=== PATIENT | female | born 1950 | race Two or more races ===

== ENCOUNTER → 2016-09-08 | Outpatient (CLI) | payer MEDICARE, OTHER | LOC: WI 06:52 | PROVIDERS: ATTEND Internal Medicine | DX: Z12.31 Encounter for screening mammogram for malignant neoplasm of breast (principal) | CPT/HCPCS: 77067; G0202 ==

== ENCOUNTER → 2018-04-12 | Outpatient (CLI) | payer MEDICARE, OTHER ==
--- NOTE | 2018-04-12 09:36 | RADIOLOGY REPORT (SQ) ---
EXAM DESCRIPTION: U/S ABDOMEN LIMITED W/O DOP COMPLETED DATE/TIME: 04/12/2018 9:12 am REASON FOR STUDY: EPIGASTRIC PAIN (R10.13), ABD TENDERNESS-EPIGASTRIC (R10.816), HEPATOMEGAL, R10.13 EPIGASTRIC PAIN R10.816 EPIGASTRIC ABDOMINAL TENDERNESS R16.0 HEPATOMEGALY, NOT ELSEWHERE CLASSIF IED COMPARISON: CT ABDOMEN PELVIS DATED 02/25/2013 TECHNIQUE: Dynamic and static grayscale images acquired of the abdomen and recorded on PACS. Additio nal selected color Doppler and spectral images recorded. LIMITATIONS: None. FINDINGS: PANCREAS: The body and head of the pancreas are unremarkable. The tail is obscured by ove rlying bowel gas. LIVER: Echotexture is coarse with increased echogenicity consistent with fatty infiltration. The bruna er measures 18.4 cm in cranial caudal dimensions. LIVER VASCULATURE: Normal directional flow of the main portal vein and hepatic veins. GALLBLADDER: Surgically absent. ULTRASOUND-DETECTED DEAL'S SIGN: Not applicable. INTRAHEPATIC DUCTS AND COMMON DUCT: CBD and intrahepatic ducts normal caliber. No filling defects. AORTA: No aneurysm. RIGHT KIDNEY: Normal size. Normal echogenicity. There is a 1.6 x 1.5 x 1.2 cm cyst off the infer ior pole the right kidney. No hydronephrosis. No calcifications. PERITONEAL AND RIGHT PLEURAL SPACE: No ascites or effusions. OTHER: No other significant finding. IMPRESSION: 1. Fatty infiltration of the liver. 2. Prior cholecystectomy. TECHNICAL DOCUMENTATION: JOB ID: [id number] [employer]- All Rights Reserved Reading location - IP/workstation name: [email or web address]
== END ==
LOC: RAD 07:49
PROVIDERS: ATTEND Internal Medicine Gastroenterology
DX: N28.1 Cyst of kidney, acquired (principal); R10.13 Epigastric pain; R16.0 Hepatomegaly, not elsewhere classified
CPT/HCPCS: 76705

== ENCOUNTER → 2018-06-28 | Outpatient (CLI) | payer MEDICARE, OTHER ==
--- NOTE | 2018-06-28 12:41 | WOMENS IMAGING REPORT ---
EXAM DESCRIPTION: 3D SCREENING MAMMO BILAT COMPLETED DATE/TIME: 06/28/2018 12:02 pm REASON FOR STUDY: ROUTINE BILATERAL SCREENING,Z12.31 Z12.31 ENCNTR SCREEN MAMMOGRAM FOR MALIGNANT N EOPLASM OF OLIVERIO COMPARISON: 2009, 2014, 2016 TECHNIQUE: Standard craniocaudal and mediolateral oblique views of each breast recorded using digita l acquisition and breast tomosynthesis. LIMITATIONS: None. FINDINGS: No masses, calcifications or architectural distortion. No areas of suspicion. Read with the assistance of CAD. .[facility] - R2 Cenova Version 1.3 .[facility] - R2 Cenova Version 1.3 .[facility] - R2 Cenova Version 2.4 .[facility] - R2 Cenova Version 2.4 .[facility] - R2 Screen Printer Helper Version 9.2 IMPRESSION: NORMAL MAMMOGRAM. BIRADS 1. BREAST DENSITY: b. There are scattered areas of fibroglandular density. BIRAD: 1 NEGATIVE RECOMMENDATION: ROUTINE SCREENING COMMENT: The patient has been notified of the results by letter per MQSA requirements. Additional no tification policies are in place for contacting patient with suspicious or incomplete findings. Quality ID #[id number]: The [employer] recommends an annual screening mammogram for women aged 40 years or over. This facility utilizes a reminder system to ensure that all patients receive reminder letters, and/or direct phone calls for appointments. This includes reminders for routine scr eening mammograms, diagnostic mammograms, or other Breast Imaging Interventions when appropriate. Th is patient will be placed in the appropriate reminder system. The [employer] (ACR) has developed recommendations for screening MRI of the breast s in certain patient populations, to be used in conjunction with mammography. Breast MRI surveillanc e may be appropriate for women with more than 20% lifetime risk of developing breast cancer as deter mined by genetic testing, significant family history of the disease, or history of mantle radiation f or Hodgkins Disease. ACR Practice Guidelines 2008. DBT Technology DBT is a type of tomographic mammography. With conventional mammography, overlapping breast tissue ma y make lesions difficult to detect, even with good compression. DBT uses an x-ray tube that rotates a round the breast, taking images at different angles. These images are then combined to create thin sl ices of the breast that the radiologist can view as a 3D reconstruction. The [employer] unit can perform full-field digital mammograms (2D imaging); or DBT (3D imaging); or both, in a combination mode that quickly performs both the mammogram and the tomosynthesis scan while the breast is still compressed. PQRS 6045F: Fluoroscopic imaging is not utilized for breast tomosynthesis. TECHNICAL DOCUMENTATION: FINDING NUMBER: (1) ASSESSMENT: (1) JOB ID: [id number] [employer]- All Rights Reserved Reading location - IP/workstation name: [email or web address]
== END ==
LOC: WI 11:06
PROVIDERS: ATTEND Internal Medicine
DX: Z12.31 Encounter for screening mammogram for malignant neoplasm of breast (principal)
CPT/HCPCS: 77063; 77067

== ENCOUNTER 2019-08-01 13:31 | Emergency (ER) | payer MEDICARE, OTHER ==
[2019-08-01] MEDS ORDERED: NORMAL SALINE 500 ML IV ONE (13:57)
--- NOTE | 2019-08-01 14:07 | ER Document Report ---
ED Medical Screen (RME) - General Chief Complaint: Dizziness Stated Complaint: DIZZY/VISION PROBLEMS Time Seen by Provider: 08/01/19 13:55 Primary Care Provider: CARLITOS FRIEND MD [Primary Care Provider] - Follow up as needed Notes: HPI: 69-year-old female presenting to the emergency department complaining of sudden onset of dizziness and lightheadedness that occurred after she ate lunch today. Patient states that she has a history of hypertension and diabetes she did take her blood pressure medications today. Patient felt fine going to lunch, after lunch she got up and became dizzy and lightheaded. Patient states she did not have chest pain or shortness of breath at that time. Patient states the dizziness seemed to stay and as she was walking to the car she felt her vision blur, this lasted for 30 minutes and then went away. Patient states she now has a slight posterior headache and feels like her heart is pounding. Patient states that she does tend to run a lower blood pressure at times. She denies unilateral weakness. Patient is on Xarelto I have greeted and performed a rapid initial assessment of this patient. A comprehensive ED assessment and evaluation of the patient, analysis of test results and completion of the medical decision making process will be conducted by additional ED providers PHYSICAL EXAMINATION: GENERAL: Well-appearing, well-nourished and in mild acute distress. HEAD: Atraumatic, normocephalic. EYES: sclera anicteric, conjunctiva are normal. ENT: Moist mucous membranes. NECK: Normal range of motion LUNGS: Normal work of breathing, clear to auscultation HEART: 2+ radial pulses bilaterally, occasionally irregular ABD: limited by positioning for exam in triage. EXTREMITIES: no pitting or edema. No cyanosis. NEUROLOGICAL: No focal neurological deficits. Moves all extremities spontaneously and on command. No facial droop. Speech is clear, no slurring. Strength equal 5/5 bilateral upper and lower extremities PSYCH: Normal mood, normal affect. SKIN: Warm, Dry, normal turgor, no rashes or lesions noted. TRAVEL OUTSIDE OF THE [place] IN LAST 30 DAYS: No - Related Data Allergies/Adverse Reactions: acetaminophen [From Vicodin] Allergy (Verified 08/01/19 13:49) adhesive [Adhesive] Allergy (Verified 02/24/13 21:25) Calcium Channel Blocking Agent Dilt [Calcium Channel Blocking Agents-Steve] Allergy (Verified 02/24/13 21:25) cephalexin monohydrate [From Keflex] Allergy (Verified 02/24/13 21:25) Cephalosporins Allergy (Verified 08/01/19 13:49) hydrocodone [From Vicodin] Allergy (Verified 08/01/19 13:49) oxycodone [Oxycodone] Allergy (Verified 02/24/13 21:25) Past Medical History - Social History Frequency of alcohol use: None Drug Abuse: None - Past Medical History Cardiac Medical History: Reports: Hx Hypertension Pulmonary Medical History: Reports: Hx Bronchitis - years ago, Hx Sleep Apnea Renal/ Medical History: Reports: Hx Kidney Stones - years ago, Hx Peritoneal Dialysis GI Medical History: Reports: Hx Gastroesophageal Reflux Disease, Hx Irritable Bowel Past Surgical History: Reports: Hx Cholecystectomy, Hx Hysterectomy - oopherectomy, Hx Orthopedic Surgery - bilateral wrist. Denies: Hx Pacemaker - Immunizations Hx Diphtheria, Pertussis, Tetanus Vaccination: No Physical Exam - Vital signs Vitals: Temp Pulse Resp BP Pulse Ox 98.3 F 69 20 96/60 L 93 08/01/19 13:43 08/01/19 13:43 08/01/19 13:43 08/01/19 13:43 08/01/19 13:43 Course - Vital Signs Vital signs: Temp Pulse Resp BP Pulse Ox 98.3 F 69 20 96/60 L 93 08/01/19 13:43 08/01/19 13:43 08/01/19 13:43 08/01/19 13:43 08/01/19 13:43 Doctor's Discharge - Discharge Referrals: CARLITOS FRIEND MD [Primary Care Provider] - Follow up as needed
--- NOTE | 2019-08-01 14:47 | RADIOLOGY REPORT (SQ) ---
EXAM DESCRIPTION: CHEST 2 VIEWS COMPLETED DATE/TIME: 08/01/2019 2:37 pm REASON FOR STUDY: dizziness COMPARISON: 02/25/2013 EXAM PARAMETERS: NUMBER OF VIEWS: two views TECHNIQUE: Digital Frontal and Lateral radiographic views of the chest acquired. RADIATION DOSE: NA LIMITATIONS: none FINDINGS: LUNGS AND PLEURA: No opacities, masses or pneumothorax. No pleural effusion. MEDIASTINUM AND HILAR STRUCTURES: No masses or contour abnormalities. HEART AND VASCULAR STRUCTURES: Normal heart size. Vascular calcifications. BONES: No acute findings. HARDWARE: Loop recorder overlies left chest. OTHER: No other significant finding. IMPRESSION: No evidence of acute cardiopulmonary process TECHNICAL DOCUMENTATION: JOB ID: [id number] 2010 [employer]- All Rights Reserved Reading location - IP/workstation name: [email or web address]
[2019-08-01 15:17] LABS: ABSOLUTE EOSINOPHILS # (AUTO) 0.2 10^3/uL (0.0-0.6); ABSOLUTE LYMPHOCYTES (AUTO) 1.6 10^3/uL (0.5-4.7); ABSOLUTE MONOCYTES (AUTO) 0.7 10^3/uL (0.1-1.4); ABSOLUTE NEUT (AUTO) 5.2 10^3/uL (1.7-8.2); BASOPHILS % (AUTO) 0.6 % (0-2); EOSINOPHILS % (AUTO) 2.1 % (0-6); HEMATOCRIT 45.1 % (36.0-47.0); LYMPHOCYTES % (AUTO) 20.7 % (13-45); MEAN CORPUSCULAR HEMOGLOBIN 31.2 pg (27.0-33.4); MEAN CORPUSCULAR HGB CONC 35.3 g/dL (32.0-36.0); MEAN CORPUSCULAR VOLUME 88 fl (80-97); MONOCYTES % (AUTO) 9.2 % (3-13); PLATELET COUNT 242 10^3/uL (150-450); RED BLOOD COUNT 5.11 10^6/uL (3.72-5.28); RED CELL DISTRIBUTION WIDTH 14.8 % (11.5-14.0); SEGMENTED NEUTROPHILS % (AUTO) 67.4 % (42-78); TOTAL CELLS COUNTED % (AUTO) 100 %; WHITE BLOOD COUNT 7.7 10^3/uL (4.0-10.5)
[2019-08-01 15:32] LABS: INTERNATIONAL RATION (INR) 2.07; PROTHROMBIN TIME 23.7 SEC (11.4-15.4)
[2019-08-01 15:38] LABS: ALKALINE PHOSPHATASE 45 U/L (38-126); ANION GAP 8 (5-19); ASPARTATE AMINO TRANSFERASE 24 U/L (14-36); BILIRUBIN,TOTAL 0.4 mg/dL (0.2-1.3); BLOOD UREA NITROGEN 21 mg/dL (7-20); CALCIUM 9.8 mg/dL (8.4-10.2); CARBON DIOXIDE 29 mmol/L (22-30); CHLORIDE 103 mmol/L (98-107); GLUCOSE 115 mg/dL (75-110); POTASSIUM 3.3 mmol/L (3.6-5.0); TOTAL PROTEIN 6.6 g/dL (6.3-8.2)
--- NOTE | 2019-08-01 16:10 | RADIOLOGY REPORT (SQ) ---
EXAM DESCRIPTION: CT HEAD WITHOUT COMPLETED DATE/TIME: 08/01/2019 3:59 pm REASON FOR STUDY: sudden dizziness COMPARISON: None. TECHNIQUE: Axial images acquired through the brain without intravenous contrast. Images reviewed wi th bone, brain and subdural windows. Additional sagittal and coronal reconstructions were generated. Images stored on PACS. All CT scanners at this facility use dose modulation, iterative reconstruction, and/or weight based d osing when appropriate to reduce radiation dose to as low as reasonably achievable (ALARA). [facility]: Dose Right [facility]: CareDose [facility]: Dose Right [facility]: Teradose 4D [facility]: TapHome RADIATION DOSE: CT Rad equipment meets quality standard of care and radiation dose reduction techniq ues were employed. CTDIvol: 53.2 mGy. DLP: 991 mGy-cm. mGy. LIMITATIONS: None. FINDINGS: VENTRICLES: Normal size and contour. CEREBRUM: No masses. No hemorrhage. No midline shift. No evidence for acute infarction. Normal gra y/white matter differentiation. No areas of low density in the white matter. Calcified lesion overly ing the left occipital lobe most likely represents a small calcified meningioma. CEREBELLUM: No masses. No hemorrhage. No alteration of density. No evidence for acute infarction. EXTRAAXIAL SPACES: No fluid collections. No masses. ORBITS AND GLOBE: No intra- or extraconal masses. Normal contour of globe without masses. CALVARIUM: No fracture. PARANASAL SINUSES: No fluid or mucosal thickening. SOFT TISSUES: No mass or hematoma. OTHER: No other significant finding. IMPRESSION: 1. No acute intracranial event. 2. Probable small calcified meningioma along the midline posteriorly on the left. EVIDENCE OF ACUTE STROKE: NO. COMMENT: Quality ID # [id number]: Final reports with documentation of one or more dose reduction techniques (e.g., Automated exposure control, adjustment of the mA and/or kV according to patient size, use of iterative reconstruction technique) TECHNICAL DOCUMENTATION: JOB ID: [id number] 2011 [employer]- All Rights Reserved Reading location - IP/workstation name: [email or web address]
--- NOTE | 2019-08-01 18:51 | ER Document Report ---
ED General - General Chief Complaint: Dizziness Stated Complaint: DIZZY/VISION PROBLEMS Time Seen by Provider: 08/01/19 13:55 Primary Care Provider: CARLITOS FRIEND MD [Primary Care Provider] - Follow up as needed Mode of Arrival: Ambulatory Information source: Patient, Relative Notes: Patient is a 69-year-old female presenting to the emergency department chief complaint of dizziness and blurred vision. Patient states it started around 12:00 today after eating lunch and getting up and walking to a vehicle. Patient states that the most it lasted about 10 minutes. Patient states that during that timeframe she was short of breath was having palpitations as well as sweaty. At the time of presentation to the emergency department patient states that symptoms have just about completely resolved. Patient states she is diabetic and has a history of atrial fibrillation. Patient denies travel history trauma history sick contacts no bad food exposure. No one else at home is similarly ill. TRAVEL OUTSIDE OF THE [place] IN LAST 30 DAYS: No - HPI Onset: This morning Onset/Duration: Sudden, Gone Quality of pain: No pain Severity: None Pain Level: 0 Associated symptoms: Nausea, Shortness of breath, Weakness Exacerbated by: Denies Relieved by: Denies Similar symptoms previously: Yes Recently seen / treated by doctor: No - Related Data Allergies/Adverse Reactions: acetaminophen [From Vicodin] Allergy (Verified 08/01/19 13:49) adhesive [Adhesive] Allergy (Verified 02/24/13 21:25) Calcium Channel Blocking Agent Dilt [Calcium Channel Blocking Agents-Steve] Allergy (Verified 02/24/13 21:25) cephalexin monohydrate [From Keflex] Allergy (Verified 02/24/13 21:25) Cephalosporins Allergy (Verified 08/01/19 13:49) hydrocodone [From Vicodin] Allergy (Verified 08/01/19 13:49) oxycodone [Oxycodone] Allergy (Verified 02/24/13 21:25) Past Medical History - General Information source: Patient, Relative, [facility] Records - Social History Smoking Status: Never Smoker Frequency of alcohol use: None Drug Abuse: None Lives with: Spouse/Significant other Family History: Reviewed & Not Pertinent Patient has suicidal ideation: No Patient has homicidal ideation: No - Past Medical History Cardiac Medical History: Reports: Hx Atrial Fibrillation, Hx Hypertension Pulmonary Medical History: Reports: Hx Bronchitis - years ago, Hx Sleep Apnea Endocrine Medical History: Reports: Hx Diabetes Mellitus Type 2 Renal/ Medical History: Reports: Hx Kidney Stones - years ago, Hx Peritoneal Dialysis GI Medical History: Reports: Hx Gastroesophageal Reflux Disease, Hx Irritable Bowel Past Surgical History: Reports: Hx Cholecystectomy, Hx Hysterectomy - oopherectomy, Hx Orthopedic Surgery - bilateral wrist. Denies: Hx Pacemaker - Immunizations Hx Diphtheria, Pertussis, Tetanus Vaccination: No Review of Systems - Review of Systems Notes: REVIEW OF SYSTEMS: CONSTITUTIONAL : Denies fever, chills, or sweats. Denies recent illness. EENT: Per HPI CARDIOVASCULAR: Denies chest pain. RESPIRATORY: Denies cough, cold, or chest congestion. Denies shortness of breath, difficulty breathing, or wheezing. GASTROINTESTINAL: Denies abdominal pain. Denies nausea, vomiting, or diarrhea. Denies constipation. GENITOURINARY: Denies difficulty urinating, painful urination, burning, frequency, or blood in urine. MUSCULOSKELETAL: Denies neck or back pain or joint pain or swelling. SKIN: Denies rash or skin lesions. HEMATOLOGIC : Denies easy bruising or bleeding. NEUROLOGICAL: Per HPI PSYCHIATRIC: Denies suicidal or homicidal ideations 10 Systems are negative unless otherwise specified above Physical Exam - Vital signs Vitals: Temp Pulse Resp BP Pulse Ox 98.3 F 69 20 96/60 L 93 08/01/19 13:43 08/01/19 13:43 08/01/19 13:43 08/01/19 13:43 08/01/19 13:43 - Notes Notes: PHYSICAL EXAMINATION: GENERAL: Well-appearing, well-nourished and in no acute distress. HEAD: Atraumatic, normocephalic. EYES: Pupils equal round and reactive to light, extraocular movements intact, sclera anicteric, conjunctiva are normal. ENT: nares patent, oropharynx clear without exudates. Moist mucous membranes. NECK: Normal range of motion, supple without lymphadenopathy, no appreciable JVD LUNGS: Lungs clear to auscultation bilaterally and equal. No wheezes rales or rhonchi. HEART: Regular rate and rhythm without murmurs ABDOMEN: Soft, nontender, normal bowel sounds. No guarding, no rebound. No masses appreciated. EXTREMITIES: Active full range of motion, no pitting or edema. No cyanosis. 2+ pulses x4 NEUROLOGICAL: At time of evaluation the patient is alert and oriented x3, Glascow coma scale of 15, cranial nerves II through XII are grossly intact, sensations intact, motor is intact, there are no signs of nystagmus, there is no pronator drift, there is no facial asymmetry, tongue protrusion is midline, reflexes are equal and bilateral, patient ambulates without ataxia, patient answers all questions appropriately follows commands appropriately. SKIN: Warm, Dry, and intact. Normal turgor, no rashes or lesions noted. Course - Vital Signs Vital signs: Temp Pulse Resp BP Pulse Ox 98.4 F 65 18 107/64 96 08/01/19 19:08 08/01/19 15:22 08/01/19 19:00 08/01/19 15:25 08/01/19 19:00 - Laboratory Result Diagrams: 08/01/19 15:00 08/01/19 15:00 Laboratory results interpreted by me: 08/01/19 08/01/19 08/01/19 15:00 15:00 15:00 Hgb 16.0 H RDW 14.8 H PT 23.7 H Potassium 3.3 L BUN 21 H Glucose 115 H Urine Glucose (UA) Urine Nitrite 08/01/19 18:15 Hgb RDW PT Potassium BUN Glucose Urine Glucose (UA) >=500 H Urine Nitrite POSITIVE H - Diagnostic Test Radiology reviewed: Reports reviewed - EKG Interpretation by Me EKG shows normal: Sinus rhythm Rate: Normal Rhythm: NSR When compared to previous EKG there are: No significant change Discharge - Discharge Clinical Impression: Dizziness, Vision blurred UTI (urinary tract infection) Qualifiers: Urinary tract infection type: site unspecified Hematuria presence: without hematuria Qualified Code(s): N39.0 - Urinary tract infection, site not specified Condition: Stable Disposition: HOME, SELF-CARE Instructions: Urinary Tract Infection ([facility]), Nitrofurantoin ([facility]) Additional Instructions: Recommend following up with your primary care provider tomorrow. Return to the emergency department for worsening symptoms. Continue taking medications as previously prescribed take your antibiotics for your urinary tract infection. Prescriptions: Nitrofurantoin Monohyd/M-Cryst [Macrobid 100 mg Capsule] 100 mg PO BID #20 cap Referrals: CARLITOS FRIEND MD [Primary Care Provider] - Follow up as needed
[2019-08-01 19:08] LABS: APPEARANCE,URINE SLIGHTLY-CLOUDY; BILIRUBIN,URINE NEGATIVE (NEGATIVE); COLOR,URINE YELLOW; GLUCOSE, URINE >=500 mg/dL (NEGATIVE); KETONES,URINE NEGATIVE (NEGATIVE); LEUKOCYTE ESTERASE,URINE NEGATIVE (NEGATIVE); NITRITE,URINE POSITIVE (NEGATIVE); PROTEIN,URINE NEGATIVE (NEGATIVE); URINE SPECIFIC GRAVITY 1.024; UROBILINOGEN,URINE NEGATIVE mg/dL (<2.0)
[2019-08-01] MEDS ORDERED: NITROFURANTOIN MONOHYD/M-CRYST 100 MG CAPSULE PO ONE (19:27)
[2019-08-01 20:13] VITALS: BP 106/62
--- NOTE | 2019-08-01 22:57 | EKG REPORT ---
SEVERITY:- BORDERLINE ECG - SINUS RHYTHM BORDERLINE T ABNORMALITIES, DIFFUSE LEADS : Confirmed by: Sylvia Muñiz MD 01-Aug-2019 22:57:02
== END 2019-08-01 20:13 | disposition home or self-care (01) ==
LOC: ER 13:31
DX: N39.0 Urinary tract infection, site not specified (principal); R42 Dizziness and giddiness; H53.8 Other visual disturbances; R53.1 Weakness; R11.0 Nausea; R06.02 Shortness of breath; E11.9 Type 2 diabetes mellitus without complications; I48.91 Unspecified atrial fibrillation; I10 Essential (primary) hypertension; Z88.8 Allergy status to other drugs, medicaments and biological substances
CPT/HCPCS: 99284; 96360; 36415; 85025; 85610; 80053; 81001; 84484; 71046; 70450; 93005; 93010; J7040; A9270; J8499

== ENCOUNTER → 2019-08-09 | Outpatient (CLI) | payer MEDICARE, OTHER ==
--- NOTE | 2019-08-09 16:45 | RADIOLOGY REPORT (SQ) ---
EXAM DESCRIPTION: CAROTID DOPPLER COMPLETED DATE/TIME: 08/09/2019 3:59 pm REASON FOR STUDY: AMAUROSIS FUGAX G45.3 AMAUROSIS FUGAX COMPARISON: None. TECHNIQUE: Grayscale ultrasound, Doppler velocity and spectra, and color Doppler images acquired of the extra-cranial carotid and vertebral arteries. Images stored on PACS. LIMITATIONS: None. FINDINGS: RIGHT CAROTID CCA Velocities: Within normal limits. ICA Velocities Peak systolic 0.59 m/s. End diastolic 0.26 m/s. Proximal ICA/CCA peak systolic ratio 0.7. Spectra normal. No significant plaque. LEFT CAROTID CCA Velocities: Within normal limits. ICA Velocities Peak systolic 0.74 m/s. End diastolic 0.21 m/s. Proximal ICA/CCA peak systolic ratio 1.1. Spectra normal. No significant plaque. VERTEBRAL ARTERIES: Antegrade flow. Normal waveforms. SUBCLAVIAN ARTERIES: No finding. OTHER: No other significant finding. IMPRESSION: NO HEMODYNAMICALLY SIGNIFICANT STENOSIS. COMMENT: Quality ID #195: Velocity criteria are extrapolated from the diameter data as defined by t he Society of Radiologists in Ultrasound Consensus Conference. Radiology 2003: 229; 340-346. TECHNICAL DOCUMENTATION: JOB ID: [id number] 2010 [employer]- All Rights Reserved Reading location - IP/workstation name: [email or web address]
== END ==
LOC: SP 13:10
PROVIDERS: ATTEND Internal Medicine
DX: G45.3 Amaurosis fugax (principal)
CPT/HCPCS: 93880

== ENCOUNTER 2019-08-10 11:16 | Inpatient (IN) | payer MEDICARE, OTHER ==
[2019-08-10] MEDS ORDERED: NORMAL SALINE 1000 ML 1,000 ML IV ONE (11:49)
--- NOTE | 2019-08-10 11:51 | ER Document Report ---
ED Medical Screen (RME) - General Chief Complaint: Dizziness Stated Complaint: HEADACHE/DIFFICULTY WALKING/DIZZY Time Seen by Provider: 08/10/19 11:42 Primary Care Provider: CARLITOS FRIEND MD [Primary Care Provider] - Follow up as needed Notes: HPI: History is obtained from the patient and her significant other. A 69-year-old female presenting for difficulty with balance issue with 3 falls yesterday 1 fall today. Denies injury or complaint on the falls. Patient has been having increasing dizziness today with a generalized headache. States she had a carotid Doppler yesterday does not know the result. Denies chest pain shortness of breath. I have greeted and performed a rapid initial assessment of this patient. A comprehensive ED assessment and evaluation of the patient, analysis of test results and completion of the medical decision making process will be conducted by additional ED providers PHYSICAL EXAMINATION: GENERAL: Well-appearing, well-nourished and in moderate acute distress. HEAD: Atraumatic, normocephalic. EYES: sclera anicteric, conjunctiva are normal. ENT: Moist mucous membranes. NECK: Normal range of motion LUNGS: Normal work of breathing, clear to auscultation HEART: 2+ radial pulses bilaterally, regular rate and rhythm ABD: limited by positioning for exam in triage. EXTREMITIES: no pitting or edema. No cyanosis. NEUROLOGICAL: No focal neurological deficits. Moves all extremities spontaneously and on command. Strength equal 5/5 bilateral upper and lower extremities. No unilateral weakness is noted on exam, sensation intact and equal bilateral upper and lower extremities. PSYCH: Normal mood, normal affect. SKIN: Warm, Dry, normal turgor, no rashes or lesions noted. Patient is moderately hypotensive, discussed with charge nurse regarding bed for patient TRAVEL OUTSIDE OF THE [place] IN LAST 30 DAYS: No - Related Data Allergies/Adverse Reactions: acetaminophen [From Vicodin] Allergy (Verified 08/01/19 13:49) adhesive [Adhesive] Allergy (Verified 02/24/13 21:25) Calcium Channel Blocking Agent Dilt [Calcium Channel Blocking Agents-Steve] Allergy (Verified 02/24/13 21:25) cephalexin monohydrate [From Keflex] Allergy (Verified 02/24/13 21:25) Cephalosporins Allergy (Verified 08/01/19 13:49) hydrocodone [From Vicodin] Allergy (Verified 08/01/19 13:49) oxycodone [Oxycodone] Allergy (Verified 02/24/13 21:25) Past Medical History - Past Medical History Cardiac Medical History: Reports: Hx Atrial Fibrillation, Hx Hypertension Pulmonary Medical History: Reports: Hx Bronchitis - years ago, Hx Sleep Apnea Endocrine Medical History: Reports: Hx Diabetes Mellitus Type 2 Renal/ Medical History: Reports: Hx Kidney Stones - years ago, Hx Peritoneal Dialysis GI Medical History: Reports: Hx Gastroesophageal Reflux Disease, Hx Irritable Bowel Past Surgical History: Reports: Hx Cholecystectomy, Hx Hysterectomy - oopherectomy, Hx Orthopedic Surgery - bilateral wrist. Denies: Hx Pacemaker - Immunizations Hx Diphtheria, Pertussis, Tetanus Vaccination: No Physical Exam - Vital signs Vitals: Temp Pulse Resp BP Pulse Ox 99.3 F 99 20 84/51 L 92 08/10/19 11:29 08/10/19 11:29 08/10/19 11:29 08/10/19 11:29 08/10/19 11:29 Course - Vital Signs Vital signs: Temp Pulse Resp BP Pulse Ox 99.3 F 99 20 146/122 H 92 08/10/19 11:29 08/10/19 11:29 08/10/19 11:29 08/10/19 11:31 08/10/19 11:29 Doctor's Discharge - Discharge Referrals: CARLITOS FRIEND MD [Primary Care Provider] - Follow up as needed
--- NOTE | 2019-08-10 12:20 | RADIOLOGY REPORT (SQ) ---
EXAM DESCRIPTION: CT HEAD WITHOUT COMPLETED DATE/TIME: 08/10/2019 12:00 pm REASON FOR STUDY: dizzy COMPARISON: 08/01/2019 TECHNIQUE: Axial images acquired through the brain without intravenous contrast. Images reviewed wi th bone, brain and subdural windows. Additional sagittal and coronal reconstructions were generated. Images stored on PACS. All CT scanners at this facility use dose modulation, iterative reconstruction, and/or weight based d osing when appropriate to reduce radiation dose to as low as reasonably achievable (ALARA). [facility]: Dose Right [facility]: CareDose [facility]: Dose Right [facility]: Teradose 4D [facility]: Broota RADIATION DOSE: CT Rad equipment meets quality standard of care and radiation dose reduction techniq ues were employed. CTDIvol: 53.2 mGy. DLP: 1044 mGy-cm. mGy. LIMITATIONS: Motion degraded exam. FINDINGS: VENTRICLES: Normal in size and contour for patient age. CEREBRUM: No masses. No hemorrhage. No midline shift. No evidence for acute infarction. Normal gra y/white matter differentiation. CEREBELLUM: No masses. No hemorrhage. No alteration of density. No evidence for acute infarction. EXTRAAXIAL SPACES: No fluid collection plan. Unchanged calcified density along the left posterior mi dline, possibly calcified meningioma. ORBITS AND GLOBE: No intra- or extraconal masses. Normal contour of globe without masses. CALVARIUM: No fracture. PARANASAL SINUSES: No fluid or mucosal thickening. SOFT TISSUES: No mass or hematoma. OTHER: No other significant finding. IMPRESSION: Motion degraded exam. 1. No evidence of acute intracranial hemorrhage or large vascular territory infarct within the limit ations of the exam. 2. Unchanged probable small calcified meningioma along the posterior left midline. EVIDENCE OF ACUTE STROKE: NO. COMMENT: Pertinent positive or negative findings of the imaging study reported as a CRITICAL EXAM t o Dr YAMILA MENDEZ MD at12:12 on 08/10/2019. Category of Critical Exam: Negative code stroke Quality ID # [id number]: Final reports with documentation of one or more dose reduction techniques (e.g., Au tomated exposure control, adjustment of the mA and/or kV according to patient size, use of iterative reconstruction technique) TECHNICAL DOCUMENTATION: JOB ID: [id number] 2010 [employer]- All Rights Reserved Reading location - IP/workstation name: [email or web address]
[2019-08-10 12:31] LABS: ABSOLUTE EOSINOPHILS # (AUTO) 0.3 10^3/uL (0.0-0.6); ABSOLUTE LYMPHOCYTES (AUTO) 0.8 10^3/uL (0.5-4.7); ABSOLUTE NEUT (AUTO) 9.6 10^3/uL (1.7-8.2); BASOPHILS % (AUTO) 0.2 % (0-2); EOSINOPHILS % (AUTO) 2.2 % (0-6); HEMATOCRIT 47.5 % (36.0-47.0); HEMOGLOBIN 16.5 g/dL (12.0-15.5); LYMPHOCYTES % (AUTO) 6.8 % (13-45); MEAN CORPUSCULAR HEMOGLOBIN 30.9 pg (27.0-33.4); MEAN CORPUSCULAR HGB CONC 34.8 g/dL (32.0-36.0); MEAN CORPUSCULAR VOLUME 89 fl (80-97); MONOCYTES % (AUTO) 8.6 % (3-13); PLATELET COUNT 215 10^3/uL (150-450); RED BLOOD COUNT 5.35 10^6/uL (3.72-5.28); RED CELL DISTRIBUTION WIDTH 15.3 % (11.5-14.0); SEGMENTED NEUTROPHILS % (AUTO) 82.2 % (42-78); TOTAL CELLS COUNTED % (AUTO) 100 %; WHITE BLOOD COUNT 11.6 10^3/uL (4.0-10.5)
[2019-08-10 12:34] LABS: INTERNATIONAL RATION (INR) 1.81
[2019-08-10 12:35] LABS: PARTIAL THROMBOPLASTIN TIME 38.7 SEC (23.5-35.8)
--- NOTE | 2019-08-10 12:36 | RADIOLOGY REPORT (SQ) ---
EXAM DESCRIPTION: CHEST SINGLE VIEW COMPLETED DATE/TIME: 08/10/2019 12:25 pm REASON FOR STUDY: dizzy COMPARISON: 08/01/2019 EXAM PARAMETERS: NUMBER OF VIEWS: One view. TECHNIQUE: Single frontal radiographic view of the chest acquired. RADIATION DOSE: NA LIMITATIONS: Minimal rightward patient rotation. FINDINGS: LUNGS AND PLEURA: No opacities, masses or pneumothorax. No pleural effusion. MEDIASTINUM AND HILAR STRUCTURES: No masses. Contour normal. HEART AND VASCULAR STRUCTURES: Increased cardiomediastinal silhouette from prior, likely related to p ortable technique. Vascular calcifications. BONES: No acute findings. HARDWARE: Loop recorder overlies left chest. OTHER: No other significant finding. IMPRESSION: Increased size of the cardiomediastinal silhouette, possibly related to portable techniq ue. No other evidence of acute intrathoracic process. TECHNICAL DOCUMENTATION: JOB ID: [id number] 2010 [email or web address]- All Rights Reserved Reading location - IP/workstation name: [email or web address]
[2019-08-10 12:39] LABS: PROTHROMBIN TIME 21.2 SEC (11.4-15.4)
[2019-08-10 12:50] LABS: ALBUMIN 3.7 g/dL (3.5-5.0); ALKALINE PHOSPHATASE 43 U/L (38-126); ANION GAP 14 (5-19); ASPARTATE AMINO TRANSFERASE 45 U/L (14-36); BILIRUBIN,DIRECT 0.3 mg/dL (0.0-0.4); BLOOD UREA NITROGEN 35 mg/dL (7-20); CALCIUM 9.3 mg/dL (8.4-10.2); CARBON DIOXIDE 23 mmol/L (22-30); CHLORIDE 94 mmol/L (98-107); CREATINE KINASE 316 U/L (30-135); GLUCOSE 154 mg/dL (75-110); POTASSIUM 3.4 mmol/L (3.6-5.0); TOTAL PROTEIN 6.4 g/dL (6.3-8.2)
--- NOTE | 2019-08-10 13:41 | ER Document Report ---
ED Dizziness/Weakness - General Chief Complaint: Dizziness Stated Complaint: HEADACHE/DIFFICULTY WALKING/DIZZY Time Seen by Provider: 08/10/19 11:42 Primary Care Provider: CARLITOS FRIEND MD [Primary Care Provider] - Follow up as needed Mode of Arrival: Medic Information source: Patient, Relative Notes: 69-year-old woman just drives episodes of confusion, imbalance and falls times 3 today. He states that her speech was slurred and she was unable to st and due to weakness. The episodes are intermittent and resolve. Presently the patient is speaking with a normal voice and does not appear to be confused. He states that she had a carotid Doppler performed as an outpatient yesterday. They do not know the results at this time. She denies a history of stroke. TRAVEL OUTSIDE OF THE [place] IN LAST 30 DAYS: No - Related Data Allergies/Adverse Reactions: acetaminophen [From Vicodin] Allergy (Verified 08/01/19 13:49) adhesive [Adhesive] Allergy (Verified 02/24/13 21:25) Calcium Channel Blocking Agent Dilt [Calcium Channel Blocking Agents-Steve] Allergy (Verified 02/24/13 21:25) cephalexin monohydrate [From Keflex] Allergy (Verified 02/24/13 21:25) Cephalosporins Allergy (Verified 08/01/19 13:49) hydrocodone [From Vicodin] Allergy (Verified 08/01/19 13:49) oxycodone [Oxycodone] Allergy (Verified 02/24/13 21:25) Home Medications: Hctz, Losartan, Gabapentin, Zolpidem, Allopurinol, Januvia, Metformin, Macrobid Past Medical History - General Information source: Patient - Social History Smoking Status: Unknown if Ever Smoked Family History: Reviewed & Not Pertinent Patient has suicidal ideation: No Patient has homicidal ideation: No - Past Medical History Cardiac Medical History: Reports: Hx Atrial Fibrillation, Hx Hypertension Pulmonary Medical History: Reports: Hx Bronchitis - years ago, Hx Sleep Apnea Endocrine Medical History: Reports: Hx Diabetes Mellitus Type 2 Renal/ Medical History: Reports: Hx Kidney Stones - years ago, Hx Peritoneal Dialysis GI Medical History: Reports: Hx Gastroesophageal Reflux Disease, Hx Irritable Bowel Past Surgical History: Reports: Hx Cholecystectomy, Hx Hysterectomy - oopherectomy, Hx Orthopedic Surgery - bilateral wrist. Denies: Hx Pacemaker - Immunizations Hx Diphtheria, Pertussis, Tetanus Vaccination: No Review of Systems - Review of Systems Notes: Constitutional: Negative for fever. HENT: Negative for sore throat. Eyes: Negative for visual changes. Cardiovascular: Negative for chest pain. Respiratory: Negative for shortness of breath. Gastrointestinal: Negative for abdominal pain, vomiting or diarrhea. Genitourinary: Negative for dysuria. Musculoskeletal: Negative for back pain. Skin: Negative for rash. Neurological: Negative for headaches, weakness or numbness. 10 point ROS negative except as marked above and in HPI. Physical Exam - Vital signs Vitals: Temp Pulse Resp BP Pulse Ox 99.3 F 99 20 84/51 L 92 08/10/19 11:29 08/10/19 11:29 08/10/19 11:29 08/10/19 11:29 08/10/19 11:29 - Notes Notes: PHYSICAL EXAMINATION: Physical Exam: General: Well-nourished well-developed 69-year-old woman in moderate distress secondary to intermittent weakness, confusion and speech difficulty. HEENT: NC/AT, pupils equal round and reactive to light, MM moist,nares clear, oropharynx clear, airway patent Neck: supple, no adenopathy, no masses. Good range of motion Lungs: clear, no wheezing, no rales no rhonchi CVS: Regular rate and rhythm no murmur gallop or rub Abdomen: Soft, active, nontender, no masses, no hepatosplenomegaly Ext: No edema, clubbing or cyanosis. Neuro: Alert and responsive, moving all 4 extremities on command, cranial nerves intact, no focal findings Skin: Intact no open lesions, no rash PSYCH: Normal mood, normal affect. Course - Re-evaluation Re-evalutation: 08/10/19 17:29 Patient had a evaluation for possible central nervous system related event. CT of the head normal, Doppler which was performed on the carotids the day before this emergency department visit was negative, MRI/MRA negative for acute stroke or vessel obstruction. Patient does have an elevated WBC count as well as a ur inary tract infection, neurologic symptoms may be metabolic encephalopathic. Blood cultures x2, lactate, and IV Levaquin is begun. Dr. Choi, was contacted and will admit the patient to the hospital for further evaluation and treatment. - Vital Signs Vital signs: Temp Pulse Resp BP Pulse Ox 99.3 F 96 23 H 131/109 H 88 L 08/10/19 11:29 08/10/19 15:00 08/10/19 15:16 08/10/19 15:16 08/10/19 15:16 - Laboratory Result Diagrams: 08/10/19 12:20 08/10/19 12:20 Laboratory results interpreted by me: 08/10/19 08/10/19 08/10/19 12:20 12:20 12:20 WBC 11.6 H RBC 5.35 H Hgb 16.5 H Hct 47.5 H RDW 15.3 H Lymph % (Auto) 6.8 L Absolute Neuts (auto) 9.6 H Seg Neutrophils % 82.2 H PT 21.2 H APTT 38.7 H Sodium 130.8 L Potassium 3.4 L Chloride 94 L BUN 35 H Est GFR (MDRD) Non-Af 50 L Glucose 154 H AST 45 H ALT 71 H Creatine Kinase 316 H Urine Protein Urine Glucose (UA) Urine Ketones Urine Blood Ur Leukocyte Esterase Urine Ascorbic Acid 08/10/19 14:20 WBC RBC Hgb Hct RDW Lymph % (Auto) Absolute Neuts (auto) Seg Neutrophils % PT APTT Sodium Potassium Chloride BUN Est GFR (MDRD) Non-Af Glucose AST ALT Creatine Kinase Urine Protein 30 H Urine Glucose (UA) >=500 H Urine Ketones TRACE H Urine Blood SMALL H Ur Leukocyte Esterase LARGE H Urine Ascorbic Acid 40 H Discharge - Discharge Clinical Impression: Acute metabolic encephalopathy UTI (urinary tract infection) Qualifiers: Urinary tract infection type: site unspecified Hematuria presence: without hematuria Qualified Code(s): N39.0 - Urinary tract infection, site not specified Leukocytosis Qualifiers: Leukocytosis type: unspecified Qualified Code(s): D72.829 - Elevated white blood cell count, unspecified Condition: Stable Disposition: ADMITTED INPATIENT Admitting Provider: [facility] Unit Admitted: Telemetry Referrals: CARLITOS FRIEND MD [Primary Care Provider] - Follow up as needed
[2019-08-10 14:42] LABS: APPEARANCE,URINE CLOUDY; BILIRUBIN,URINE NEGATIVE (NEGATIVE); COLOR,URINE YELLOW; GLUCOSE, URINE >=500 mg/dL (NEGATIVE); KETONES,URINE TRACE mg/dL (NEGATIVE); LEUKOCYTE ESTERASE,URINE LARGE (NEGATIVE); NITRITE,URINE NEGATIVE (NEGATIVE); PROTEIN,URINE 30 mg/dL (NEGATIVE); URINE SPECIFIC GRAVITY 1.021; UROBILINOGEN,URINE NEGATIVE mg/dL (<2.0)
--- NOTE | 2019-08-10 16:25 | RADIOLOGY REPORT (SQ) ---
EXAM DESCRIPTION: MRI HEAD WITHOUT COMPLETED DATE/TIME: 08/10/2019 4:06 pm REASON FOR STUDY: Imbalance/ataxia COMPARISON: CT from earlier same date. TECHNIQUE: Multiplanar imaging includes non-contrasted T1, T2, FLAIR, and diffusion with ADC map seq uences. Images stored on PACS. LIMITATIONS: Limiting motion artifact on many of the sequences. FINDINGS: ANATOMY: No anomalies. Normal vascular flow voids. Pituitary fossa normal. CSF SPACES: Age-appropriate. No extra-axial mass or hemorrhage or fluid detected. CEREBRUM: High signal intensity lesions scattered throughout the white matter on FLAIR imaging with d istribution suggesting micro-vascular ischemic changes. No evidence of hemorrhage, mass, or extraaxi al fluid collection. POSTERIOR FOSSA: No signal alteration. No hemorrhage. No edema, masses or mass effect. Internal milana tory canals, cerebello-pontine angles, mastoids normal. DIFFUSION IMAGING: Negative for acute or sub-acute infarction. ORBITS: No masses. Globes normal. PARANASAL SINUSES: No fluid levels. Mucosa normal. OTHER: No other significant finding. IMPRESSION: 1. No evidence of acute CVA. 2. Limiting motion. 3. Small vessel disease. EVIDENCE OF ACUTE STROKE: NO. TECHNICAL DOCUMENTATION: JOB ID: [id number] 2010 [employer]- All Rights Reserved Reading location - IP/workstation name: [email or web address]
--- NOTE | 2019-08-10 16:26 | RADIOLOGY REPORT (SQ) ---
EXAM DESCRIPTION: MRA HEAD WITHOUT COMPLETED DATE/TIME: 08/10/2019 4:06 pm REASON FOR STUDY: Strokelike symptoms COMPARISON: MRI brain separately dictated same date. TECHNIQUE: Axial 3-D [id number] acquisition imaging performed through the brain in the area of t he habematolel of [place]. Images reformatted using 3-D MIPS. LIMITATIONS: Limiting motion. The septum moderate. FINDINGS: SOURCE IMAGES: No unexpected findings on source images. No large masses. 3-D MIP: No aneurysm. No occlusions. No significant stenosis. OTHER: No other significant finding. IMPRESSION: Limiting motion. No gross aneurysm or arterial occlusion of the habematolel of [place]. TECHNICAL DOCUMENTATION: JOB ID: [id number] 2010 [employer]- All Rights Reserved Reading location - IP/workstation name: [email or web address]
[2019-08-10] MEDS ORDERED: LEVOFLOXACIN 750 MG/D5W RTU 750 MG/150 ML RTUPB IV ONE (16:52)
--- NOTE | 2019-08-10 18:09 | EKG REPORT ---
SEVERITY:- ABNORMAL ECG - SINUS RHYTHM PROBABLE LEFT ATRIAL ABNORMALITY BORDERLINE R WAVE PROGRESSION, ANTERIOR LEADS NONSPECIFIC T ABNORMALITIES, DIFFUSE LEADS : Confirmed by: Juliano Aldrich MD 10-Aug-2019 18:08:43
[2019-08-10] MEDS ORDERED: ACETAMINOPHEN 325 MG TABLET PO PRN (20:58)
[2019-08-10] MEDS: NORMAL SALINE 1000 ML 1,000 ML IV PRN (22:14)
[2019-08-10] MEDS ORDERED: RIVAROXABAN 10 MG TABLET PO ONE (22:15)
[2019-08-11 05:11] LABS: ABSOLUTE EOSINOPHILS # (AUTO) 0.7 10^3/uL (0.0-0.6); ABSOLUTE LYMPHOCYTES (AUTO) 1.1 10^3/uL (0.5-4.7); ABSOLUTE MONOCYTES (AUTO) 0.9 10^3/uL (0.1-1.4); ABSOLUTE NEUT (AUTO) 4.9 10^3/uL (1.7-8.2); BASOPHILS % (AUTO) 0.3 % (0-2); EOSINOPHILS % (AUTO) 8.9 % (0-6); HEMATOCRIT 43.2 % (36.0-47.0); HEMOGLOBIN 14.9 g/dL (12.0-15.5); LYMPHOCYTES % (AUTO) 14.9 % (13-45); MEAN CORPUSCULAR HEMOGLOBIN 30.7 pg (27.0-33.4); MEAN CORPUSCULAR HGB CONC 34.5 g/dL (32.0-36.0); MEAN CORPUSCULAR VOLUME 89 fl (80-97); MONOCYTES % (AUTO) 12.2 % (3-13); PLATELET COUNT 154 10^3/uL (150-450); RED BLOOD COUNT 4.86 10^6/uL (3.72-5.28); RED CELL DISTRIBUTION WIDTH 15.4 % (11.5-14.0); SEGMENTED NEUTROPHILS % (AUTO) 63.7 % (42-78); TOTAL CELLS COUNTED % (AUTO) 100 %; WHITE BLOOD COUNT 7.7 10^3/uL (4.0-10.5)
[2019-08-11 05:30] LABS: ALBUMIN 2.9 g/dL (3.5-5.0); ALKALINE PHOSPHATASE 32 U/L (38-126); ANION GAP 12 (5-19); ASPARTATE AMINO TRANSFERASE 30 U/L (14-36); BILIRUBIN,DIRECT 0.4 mg/dL (0.0-0.4); BILIRUBIN,TOTAL 0.6 mg/dL (0.2-1.3); BLOOD UREA NITROGEN 30 mg/dL (7-20); CALCIUM 8.4 mg/dL (8.4-10.2); CARBON DIOXIDE 22 mmol/L (22-30); CHLORIDE 101 mmol/L (98-107); GLUCOSE 123 mg/dL (75-110); TOTAL PROTEIN 5.5 g/dL (6.3-8.2)
[2019-08-11 05:38] LABS: POTASSIUM 2.9 mmol/L (3.6-5.0)
[2019-08-11] MEDS: POTASSIUM CHLORIDE 10 MEQ TABLET.ER PO SCH ×2 (06:56→09:41)
[2019-08-11] MEDS: PANTOPRAZOLE SODIUM 40 MG TABLET.DR PO SCH (09:41)
[2019-08-11] MEDS: NORMAL SALINE 1000 ML 1,000 ML IV PRN ×2 (09:42→20:00)
[2019-08-11] MEDS: LEVOFLOXACIN 500 MG/D5W RTU 500 MG/100 ML RTUPB IV SCH (09:42)
--- NOTE | 2019-08-11 14:27 | PDOC H&P ---
History of Present Illness Admission Date/PCP: 08/10/19 17:34 CARLITOS FRIEND MD Patient complains of: Dizziness, right leg weakness History of Present Illness: ALAN HAYES is a 69 year old female patient of Dr. Friend who presented to the ED for further evaluation of her persistent dizziness and recurrent falls at home. she reported that she has been having loss of balance and not walking straight. She reported associated headache and generalized weakness. She denied any history of stroke, focal weakness or sustained any injury with her falls. S he was evaluated on outpatient with carotid doppler that did not reveal any significant findings. Her initial ED evaluation was unrevealing regarding her head CT scan. Further evaluation revealed electrolyte derangement with prerenal azotemia, elevated CK and her urinalysis suggested possible UTI. She was advised hospitalization for further evaluation and management. Her morbidities are as listed below. Past Medical History Cardiac Medical History: Reports: Atrial Fibrillation, Hypertension Pulmonary Medical History: Reports: Bronchitis - years ago, Sleep Apnea Endocrine Medical History: Reports: Diabetes Mellitus Type 2 GI Medical History: Reports: Gastroesophageal Reflux Disease Past Surgical History Past Surgical History: Reports: Cholecystectomy, Hysterectomy - oopherectomy, Orthopedic Surgery - bilateral wrist Denies: Pacemaker Social History Smoking Status: Unknown if Ever Smoked Hx Recreational Drug Use: No Hx Prescription Drug Abuse: No Family History Family History: Reviewed & Not Pertinent Parental Family History Reviewed: Yes Children Family History Reviewed: Yes Sibling(s) Family History Reviewed.: Yes Medication/Allergy Home Medications: Metformin HCl 1,000 mg PO QHS 02/16/12 Valacyclovir HCl [Valtrex 500 Mg Tablet] 1,000 mg PO DAILY 02/16/12 Metoprolol Tartrate [Lopressor 50 mg Tablet] 50 mg PO Q12H 02/24/13 Rivaroxaban [Xarelto 10 mg Tablet] 20 mg PO QPM 02/24/13 Tolterodine Tartrate [Detrol 1 mg Tablet] 2 mg PO QAM 02/24/13 Pantoprazole Sodium [Protonix] 40 mg PO DAILY #14 tablet. 02/25/13 Nitrofurantoin Monohyd/M-Cryst [Macrobid 100 mg Capsule] 100 mg PO BID #20 cap 08/01/19 Acetaminophen with Codeine [Tylenol #3 Tablet] 2 tab PO Q4HP PRN 08/10/19 Allopurinol [Zyloprim 300 mg Tablet] 300 mg PO DAILY 08/10/19 Duloxetine HCl [Cymbalta] 60 mg PO DAILY 08/10/19 Empagliflozin [Jardiance] 25 mg PO DAILY 08/10/19 Losartan/Hydrochlorothiazide [Losartan-Hctz 100-25 mg Tab] 1 tab PO DAILY 08/10/19 Sitagliptin Phosphate [Januvia 50 mg Tablet] 100 mg PO DAILY 08/10/19 Zolpidem Tartrate [Zolpidem Tartrate ER] 6.25 mg PO HSP PRN 08/10/19 Allergies/Adverse Reactions: acetaminophen [From Vicodin] Allergy (Verified 08/01/19 13:49) adhesive [Adhesive] Allergy (Verified 02/24/13 21:25) Calcium Channel Blocking Agent Dilt [Calcium Channel Blocking Agents-Steve] Allergy (Verified 02/24/13 21:25) cephalexin monohydrate [From Keflex] Allergy (Verified 02/24/13 21:25) Cephalosporins Allergy (Verified 08/01/19 13:49) hydrocodone [From Vicodin] Allergy (Verified 08/01/19 13:49) oxycodone [Oxycodone] Allergy (Verified 02/24/13 21:25) Review of Systems Constitutional: PRESENT: fatigue, headache(s), weakness Eyes: ABSENT: visual disturbances Ears: ABSENT: hearing changes Nose, Mouth, and Throat: PRESENT: headache(s) Cardiovascular: ABSENT: chest pain, dyspnea on exertion, edema, orthropnea, palpitations Respiratory: ABSENT: cough, hemoptysis Gastrointestinal: ABSENT: abdominal pain, constipation, diarrhea, hematemesis, hematochezia, nausea, vomiting Genitourinary: ABSENT: dysuria, hematuria Musculoskeletal: PRESENT: muscle weakness - generalized Integumentary: ABSENT: rash, wounds Neurological: PRESENT: abnormal movements, dizziness, lack of coordination, weakness - generalized Psychiatric: ABSENT: anxiety, depression, homidical ideation, suicidal ideation Endocrine: ABSENT: cold intolerance, heat intolerance, menstrual abnormalities, polydipsia, polyuria Hematologic/Lymphatic: ABSENT: easy bleeding, easy bruising, lymphadenopathy Allergic/Immunologic: ABSENT: seasonal rhinorrhea Physical Exam Vital Signs: Temp Pulse Resp BP Pulse Ox 97.4 F 76 18 103/63 96 08/11/19 11:36 08/11/19 11:36 08/11/19 11:36 08/11/19 11:36 08/11/19 11:36 Intake & Output 08/10/19 08/11/19 08/12/19 06:59 06:59 07:59 Intake Total 1150 1696 Balance 1150 1696 Weight 89.2 kg General appearance: PRESENT: no acute distress, obese Head exam: PRESENT: atraumatic, normocephalic Eye exam: PRESENT: conjunctiva pink, EOMI, PERRLA. ABSENT: scleral icterus Ear exam: PRESENT: normal external ear exam Mouth exam: PRESENT: moist, tongue midline Neck exam: PRESENT: full ROM. ABSENT: carotid bruit, JVD, lymphadenopathy, thyromegaly Respiratory exam: PRESENT: clear to auscultation lior Cardiovascular exam: PRESENT: RRR, +S1, +S2. ABSENT: diastolic murmur, rubs, systolic murmur Vascular exam: ABSENT: pallor GI/Abdominal exam: PRESENT: normal bowel sounds, soft. ABSENT: distended, guarding, mass, organolmegaly, rebound, tenderness Rectal exam: PRESENT: deferred Extremities exam: ABSENT: pedal edema Neurological exam: PRESENT: alert, awake, oriented to person, oriented to place, oriented to time, oriented to situation, CN II-XII grossly intact. ABSENT: motor sensory deficit Psychiatric exam: PRESENT: appropriate affect, normal mood. ABSENT: homicidal ideation, suicidal ideation Skin exam: PRESENT: dry, intact, warm. ABSENT: cyanosis, rash Results Laboratory Results: 08/11/19 04:43 08/11/19 04:43 08/10/19 08/10/19 08/10/19 14:20 17:20 22:03 WBC RBC Hgb Hct MCV MCH MCHC RDW Plt Count Seg Neutrophils % Sodium Potassium Chloride Carbon Dioxide Anion Gap BUN Creatinine Est GFR ( Amer) Glucose Lactic Acid 1.2 4.0 H Calcium Magnesium Total Bilirubin AST Alkaline Phosphatase Total Protein Albumin Urine Color YELLOW Urine Appearance CLOUDY Urine pH 6.0 Ur Specific [place] 1.021 Urine Protein 30 H Urine Glucose (UA) >=500 H Urine Ketones TRACE H Urine Blood SMALL H Urine Nitrite NEGATIVE Ur Leukocyte Esterase LARGE H Urine WBC (Auto) 69 Urine RBC (Auto) 23 08/11/19 08/11/19 08/11/19 01:53 04:43 04:43 WBC 7.7 RBC 4.86 Hgb 14.9 Hct 43.2 MCV 89 MCH 30.7 MCHC 34.5 RDW 15.4 H Plt Count 154 Seg Neutrophils % 63.7 Sodium 134.7 L Potassium 2.9 L* Chloride 101 Carbon Dioxide 22 Anion Gap 12 BUN 30 H Creatinine 0.83 Est GFR ( Amer) > 60 Glucose 123 H Lactic Acid 2.1 Calcium 8.4 Magnesium Total Bilirubin 0.6 AST 30 Alkaline Phosphatase 32 L Total Protein 5.5 L Albumin 2.9 L Urine Color Urine Appearance Urine pH Ur Specific [place] Urine Protein Urine Glucose (UA) Urine Ketones Urine Blood Urine Nitrite Ur Leukocyte Esterase Urine WBC (Auto) Urine RBC (Auto) 08/11/19 04:43 WBC RBC Hgb Hct MCV MCH MCHC RDW Plt Count Seg Neutrophils % Sodium Potassium Chloride Carbon Dioxide Anion Gap BUN Creatinine Est GFR ( Amer) Glucose Lactic Acid Calcium Magnesium 2.1 Total Bilirubin AST Alkaline Phosphatase Total Protein Albumin Urine Color Urine Appearance Urine pH Ur Specific [place] Urine Protein Urine Glucose (UA) Urine Ketones Urine Blood Urine Nitrite Ur Leukocyte Esterase Urine WBC (Auto) Urine RBC (Auto) 08/10/19 08/10/19 08/10/19 12:20 12:20 16:10 Creatine Kinase 316 H Troponin I 0.054 0.038 Impressions: Chest X-Ray 08/10/19 11:47 IMPRESSION: Increased size of the cardiomediastinal silhouette, possibly related to portable technique. No other evidence of acute intrathoracic process. Head CT 08/10/19 11:47 IMPRESSION: Motion degraded exam. 1. No evidence of acute intracranial hemorrhage or large vascular territory infarct within the limitations of the exam. 2. Unchanged probable small calcified meningioma along the posterior left midline. EVIDENCE OF ACUTE STROKE: NO. Head MRI 08/10/19 13:02 IMPRESSION: 1. No evidence of acute CVA. 2. Limiting motion. 3. Small vessel disease. EVIDENCE OF ACUTE STROKE: NO. Brain MRI with MRA 08/10/19 13:04 IMPRESSION: Limiting motion. No gross aneurysm or arterial occlusion of the nikolai of [place]. Assessment & Plan - Diagnosis (1) Acute metabolic encephalopathy Is this a current diagnosis for this admission?: Yes Plan: See covering attending physician orders for details about care plan. (2) UTI (urinary tract infection) Qualifiers: Urinary tract infection type: site unspecified Hematuria presence: without hematuria Qualified Code(s): N39.0 - Urinary tract infection, site not specified Is this a current diagnosis for this admission?: Yes Plan: See covering attending physician orders for details about care plan. (3) Hyponatremia Is this a current diagnosis for this admission?: Yes Plan: See covering attending physician orders for details about care plan. (4) Hypokalemia Is this a current diagnosis for this admission?: Yes Plan: See covering attending physician orders for details about care plan. (5) Prerenal azotemia Is this a current diagnosis for this admission?: Yes Plan: See covering attending physician orders for details about care plan. (6) Diabetes mellitus type 2 in obese Is this a current diagnosis for this admission?: Yes Plan: See covering attending physician orders for details about care plan. (7) Chronic atrial fibrillation Is this a current diagnosis for this admission?: Yes Plan: See covering attending physician orders for details about care plan. (8) HTN (hypertension) Qualifiers: Hypertension type: essential hypertension Qualified Code(s): I10 - Essential (primary) hypertension Is this a current diagnosis for this admission?: Yes Plan: See covering attending physician orders for details about care plan. (9) GERD (gastroesophageal reflux disease) Qualifiers: Esophagitis presence: esophagitis presence not specified Qualified Code(s): K21.9 - Gastro-esophageal reflux disease without esophagitis Is this a current diagnosis for this admission?: Yes Plan: See covering attending physician orders for details about care plan. - Time Time Spent: 50 to 70 Minutes Medications reviewed and adjusted accordingly: Yes Anticipated discharge: Home with Homehealth Within: Other - Inpatient Certification Based on my medical assessment, after consideration of the patient's comorbidities, presenting symptoms, or acuity I expect that the services needed warrant INPATIENT care.: Yes I certify that my determination is in accordance with my understanding of Medicare's requirements for reasonable and necessary INPATIENT services [42 CFR 412.3e].: Yes Medical Necessity: Significant Comorbidiites Make Outpatient Treatment Too Risky, Need Close Monitoring Due to Risk of Patient Decompensation, Need For IV Fluids, Need for IV Antibiotics, Risk of Complication if Not Cared For in Hospital, Risk of Diagnosis Which Will Require Inpatient Eval/Care/Monitoring Post Hospital Care: D/C Lead Generation Representative Documentation - Plan Summary Plan Summary: See covering attending physician orders for details about care plan.
[2019-08-11] MEDS: METOPROLOL TARTRATE 50 MG TABLET PO SCH (15:27)
[2019-08-11] MEDS: METFORMIN HCL 500 MG TABLET PO SCH (21:15)
[2019-08-11] MEDS: RIVAROXABAN 10 MG TABLET PO SCH (21:15)
[2019-08-11] MEDS ORDERED: (PENDING PHARMACY ID) (Metformin Hcl [Metformin Hcl] 1,000 MG) PO SCH (22:00)
[2019-08-12] MEDS: METOPROLOL TARTRATE 50 MG TABLET PO SCH ×2 (04:34→14:04)
[2019-08-12] MEDS: SITAGLIPTIN PHOSPHATE 50 MG TABLET PO SCH (09:25)
[2019-08-12] MEDS: PANTOPRAZOLE SODIUM 40 MG TABLET.DR PO SCH (09:25)
[2019-08-12] MEDS: DULOXETINE HCL 30 MG CAPSULE.DR PO SCH (09:25)
[2019-08-12] MEDS: TOLTERODINE TARTRATE 1 MG TABLET PO SCH (09:25)
[2019-08-12] MEDS: HYDROCHLOROTHIAZIDE 25 MG TABLET PO SCH (09:26)
[2019-08-12] MEDS: LOSARTAN POTASSIUM 50 MG TABLET PO SCH (09:26)
[2019-08-12] MEDS: VALACYCLOVIR HCL 500 MG TABLET PO SCH (09:27)
[2019-08-12] MEDS: ALLOPURINOL 300 MG TABLET PO SCH (09:27)
[2019-08-12] MEDS: LEVOFLOXACIN 500 MG/D5W RTU 500 MG/100 ML RTUPB IV SCH (09:27)
[2019-08-12] MEDS: NORMAL SALINE 1000 ML 1,000 ML IV PRN ×2 (09:27→15:52)
[2019-08-12] MEDS ORDERED: (PENDING PHARMACY ID) (Empagliflozin [Jardiance] 25 MG) PO SCH (10:00)
[2019-08-12] MEDS ORDERED: (PENDING PHARMACY ID) (Losartan/Hydrochlorothiazide [Losartan-Hctz 100-25 Mg Tab] 1 TAB) PO SCH (10:00)
[2019-08-12] MEDS ORDERED: ONDANSETRON HCL INJ/PF 4 MG/2 ML SDV IV PRN (10:37)
[2019-08-12] MEDS ORDERED: NORMAL SALINE 1000 ML 500 ML IV ONE (14:43)
--- NOTE | 2019-08-12 14:43 | PDOC PROGRESS REPORT ---
Subjective Progress Note for:: 08/12/19 Subjective:: Patient reported feeling better with less dizziness and improvement in her walking. No fever or chills. No chest pain or difficulty with breathing. No nausea, vomiting or abdominal pain. Patient reported two bouts of diarrhea. Blood pressure medications on hold due to low normal readings. Reason For Visit: UTI,METABOLIC ENCEPHALOPATHY Physical Exam Vital Signs: Temp Pulse Resp BP Pulse Ox 98.3 F 89 21 H 98/46 L 99 08/12/19 12:00 08/12/19 12:00 08/12/19 12:00 08/12/19 13:51 08/12/19 12:00 Intake & Output 08/11/19 08/12/19 08/13/19 05:59 06:59 06:59 Intake Total 2161 Balance 2161 Weight General appearance: PRESENT: obese Head exam: PRESENT: atraumatic, normocephalic Eye exam: PRESENT: conjunctiva pink. ABSENT: scleral icterus Ear exam: PRESENT: normal external ear exam Mouth exam: PRESENT: moist Respiratory exam: PRESENT: clear to auscultation [place] Cardiovascular exam: PRESENT: RRR, +S1, +S2. ABSENT: diastolic murmur, rubs, systolic murmur Vascular exam: ABSENT: pallor GI/Abdominal exam: PRESENT: normal bowel sounds, soft. ABSENT: distended, guarding, mass, organolmegaly, rebound, tenderness Extremities exam: ABSENT: pedal edema Neurological exam: PRESENT: alert, awake, oriented to person, oriented to place, oriented to time, oriented to situation, CN II-XII grossly intact. ABSENT: motor sensory deficit Psychiatric exam: PRESENT: appropriate affect, normal mood. ABSENT: homicidal ideation, suicidal ideation Skin exam: PRESENT: dry, warm Results Laboratory Results: 08/11/19 04:43 08/11/19 04:43 08/10/19 14:20 Clean Catch Midstream Urine Culture - Final Mixed Urogenital Yvette 08/10/19 08/10/19 08/10/19 12:20 12:20 16:10 Creatine Kinase 316 H Troponin I 0.054 0.038 Impressions: Chest X-Ray 08/10/19 11:47 IMPRESSION: Increased size of the cardiomediastinal silhouette, possibly related to portable technique. No other evidence of acute intrathoracic process. Head CT 08/10/19 11:47 IMPRESSION: Motion degraded exam. 1. No evidence of acute intracranial hemorrhage or large vascular territory infarct within the limitations of the exam. 2. Unchanged probable small calcified meningioma along the posterior left midline. EVIDENCE OF ACUTE STROKE: NO. Head MRI 08/10/19 13:02 IMPRESSION: 1. No evidence of acute CVA. 2. Limiting motion. 3. Small vessel disease. EVIDENCE OF ACUTE STROKE: NO. Brain MRI with MRA 08/10/19 13:04 IMPRESSION: Limiting motion. No gross aneurysm or arterial occlusion of the [place]. Assessment & Plan - Diagnosis (1) Acute metabolic encephalopathy Is this a current diagnosis for this admission?: Yes (2) UTI (urinary tract infection) Qualifiers: Urinary tract infection type: site unspecified Hematuria presence: without hematuria Qualified Code(s): N39.0 - Urinary tract infection, site not specified Is this a current diagnosis for this admission?: Yes (3) Hyponatremia Is this a current diagnosis for this admission?: Yes (4) Hypokalemia Is this a current diagnosis for this admission?: Yes (5) Prerenal azotemia Is this a current diagnosis for this admission?: Yes (6) Diabetes mellitus type 2 in obese Is this a current diagnosis for this admission?: Yes (7) Chronic atrial fibrillation Is this a current diagnosis for this admission?: Yes (8) HTN (hypertension) Qualifiers: Hypertension type: essential hypertension Qualified Code(s): I10 - Essential (primary) hypertension Is this a current diagnosis for this admission?: Yes (9) GERD (gastroesophageal reflux disease) Qualifiers: Esophagitis presence: esophagitis presence not specified Qualified Code(s): K21.9 - Gastro-esophageal reflux disease without esophagitis Is this a current diagnosis for this admission?: Yes (10) Diarrhea Qualifiers: Diarrhea type: unspecified type Qualified Code(s): R19.7 - Diarrhea, unspecified Is this a current diagnosis for this admission?: Yes Plan: Monitor for recurrent diarrhea. Obtain stool C. difficile toxin if diarrhea recur. (11) Persistent insomnia Is this a current diagnosis for this admission?: Yes Plan: Patient was on Ambien CR 6.25 mg po qhs prn at home. She is requesting for same to improve her sleep pattern. - Time Time Spent with patient: 25-34 minutes Level of Care: MEDICAL Medications reviewed and adjusted accordingly: Yes Anticipated discharge: Home with Homehealth Within: Other - Inpatient Certification Based on my medical assessment, after consideration of the patient's comorbidities, presenting symptoms, or acuity I expect that the services needed warrant INPATIENT care.: Yes I certify that my determination is in accordance with my understanding of Medicare's requirements for reasonable and necessary INPATIENT services [42 CFR 412.3e].: Yes Medical Necessity: Significant Comorbidiites Make Outpatient Treatment Too Risky, Need Close Monitoring Due to Risk of Patient Decompensation, Need For IV Fluids, Need For Continuous Telemetry Monitoring, Need for IV Antibiotics, Risk of Complication if Not Cared For in Hospital, Risk of Diagnosis Which Will Require Inpatient Eval/Care/Monitoring Post Hospital Care: D/C [employer] Technical [employer] Documentation - Plan Summary Plan Summary: Continue current medication management. N/S 500 ml bolus administration.
[2019-08-12] MEDS: RIVAROXABAN 10 MG TABLET PO SCH (21:00)
[2019-08-12] MEDS: ZOLPIDEM TARTRATE 5 MG TABLET PO PRN (21:00)
[2019-08-12] MEDS: METFORMIN HCL 500 MG TABLET PO SCH (21:00)
[2019-08-13] MEDS: METOPROLOL TARTRATE 50 MG TABLET PO SCH ×2 (03:25→15:23)
[2019-08-13] MEDS: NORMAL SALINE 1000 ML 1,000 ML IV PRN ×2 (05:10→15:24)
[2019-08-13] MEDS: TOLTERODINE TARTRATE 1 MG TABLET PO SCH (09:16)
[2019-08-13] MEDS: DULOXETINE HCL 30 MG CAPSULE.DR PO SCH (09:16)
[2019-08-13] MEDS: VALACYCLOVIR HCL 500 MG TABLET PO SCH (09:16)
[2019-08-13] MEDS: HYDROCHLOROTHIAZIDE 25 MG TABLET PO SCH (09:16)
[2019-08-13] MEDS: PANTOPRAZOLE SODIUM 40 MG TABLET.DR PO SCH (09:16)
[2019-08-13] MEDS: LOSARTAN POTASSIUM 50 MG TABLET PO SCH (09:16)
[2019-08-13] MEDS: SITAGLIPTIN PHOSPHATE 50 MG TABLET PO SCH (09:17)
[2019-08-13] MEDS: ALLOPURINOL 300 MG TABLET PO SCH (09:17)
[2019-08-13] MEDS: LEVOFLOXACIN 500 MG/D5W RTU 500 MG/100 ML RTUPB IV SCH (09:17)
[2019-08-13 19:22] LABS: ABSOLUTE EOSINOPHILS # (AUTO) 0.7 10^3/uL (0.0-0.6); ABSOLUTE LYMPHOCYTES (AUTO) 2.3 10^3/uL (0.5-4.7); ABSOLUTE MONOCYTES (AUTO) 0.6 10^3/uL (0.1-1.4); ABSOLUTE NEUT (AUTO) 5.8 10^3/uL (1.7-8.2); BASOPHILS % (AUTO) 0.3 % (0-2); EOSINOPHILS % (AUTO) 7.9 % (0-6); HEMATOCRIT 43.4 % (36.0-47.0); HEMOGLOBIN 15.3 g/dL (12.0-15.5); LYMPHOCYTES % (AUTO) 24.1 % (13-45); MEAN CORPUSCULAR HEMOGLOBIN 31.5 pg (27.0-33.4); MEAN CORPUSCULAR HGB CONC 35.3 g/dL (32.0-36.0); MEAN CORPUSCULAR VOLUME 89 fl (80-97); MONOCYTES % (AUTO) 6.6 % (3-13); PLATELET COUNT 222 10^3/uL (150-450); RED BLOOD COUNT 4.86 10^6/uL (3.72-5.28); RED CELL DISTRIBUTION WIDTH 15.3 % (11.5-14.0); SEGMENTED NEUTROPHILS % (AUTO) 61.1 % (42-78); TOTAL CELLS COUNTED % (AUTO) 100 %; WHITE BLOOD COUNT 9.4 10^3/uL (4.0-10.5)
[2019-08-13 19:42] LABS: ANION GAP 6 (5-19); BLOOD UREA NITROGEN 15 mg/dL (7-20); CALCIUM 8.2 mg/dL (8.4-10.2); CARBON DIOXIDE 23 mmol/L (22-30); CHLORIDE 107 mmol/L (98-107); GLUCOSE 136 mg/dL (75-110)
--- NOTE | 2019-08-13 20:17 | PDOC PROGRESS REPORT ---
Subjective Progress Note for:: 08/13/19 Subjective:: Patient was seen by the bedside, she was admitted over the weekend for the management of metabolic encephalopathy, urinary tract infection. She stated that she feels better since admission presently on intravenous Levaquin, lab work was repeated all came back normal, she be discharge home tomorrow. Reason For Visit: UTI,METABOLIC ENCEPHALOPATHY Physical Exam Vital Signs: Temp Pulse Resp BP Pulse Ox 98.4 F 139 H 21 H 105/54 L 99 08/13/19 16:10 08/13/19 16:10 08/13/19 16:10 08/13/19 16:10 08/13/19 16:10 Intake & Output 08/12/19 08/13/19 08/14/19 06:59 06:59 06:59 Intake Total 4323 1700 Balance 4323 1700 Weight 95.5 kg General appearance: PRESENT: no acute distress, well-developed, well-nourished Head exam: PRESENT: atraumatic, normocephalic Eye exam: PRESENT: conjunctiva pink, EOMI, PERRLA. ABSENT: scleral icterus Ear exam: PRESENT: normal external ear exam Mouth exam: PRESENT: moist, tongue midline Neck exam: PRESENT: full ROM Respiratory exam: PRESENT: clear to auscultation lior Cardiovascular exam: PRESENT: RRR, +S1, +S2 Pulses: PRESENT: normal dorsalis pedis pul, +2 pedal pulses bilateral Vascular exam: PRESENT: normal capillary refill GI/Abdominal exam: PRESENT: normal bowel sounds, soft Rectal exam: PRESENT: deferred Neurological exam: PRESENT: alert, awake, oriented to person, oriented to place, oriented to time, oriented to situation, CN II-XII grossly intact. ABSENT: motor sensory deficit Psychiatric exam: PRESENT: appropriate affect, normal mood Skin exam: PRESENT: dry, intact, warm. ABSENT: cyanosis, rash Results Laboratory Results: 08/13/19 18:45 08/13/19 18:45 08/13/19 08/13/19 18:45 18:45 WBC 9.4 RBC 4.86 Hgb 15.3 Hct 43.4 MCV 89 MCH 31.5 MCHC 35.3 RDW 15.3 H Plt Count 222 Seg Neutrophils % 61.1 Sodium 136.1 L Potassium 4.0 Chloride 107 Carbon Dioxide 23 Anion Gap 6 BUN 15 Creatinine 0.83 Est GFR ( Amer) > 60 Glucose 136 H Calcium 8.2 L 08/10/19 08/10/19 08/10/19 12:20 12:20 16:10 Creatine Kinase 316 H Troponin I 0.054 0.038 Impressions: Chest X-Ray 08/10/19 11:47 IMPRESSION: Increased size of the cardiomediastinal silhouette, possibly related to portable technique. No other evidence of acute intrathoracic process. Head CT 08/10/19 11:47 IMPRESSION: Motion degraded exam. 1. No evidence of acute intracranial hemorrhage or large vascular territory infarct within the limitations of the exam. 2. Unchanged probable small calcified meningioma along the posterior left midline. EVIDENCE OF ACUTE STROKE: NO. Head MRI 08/10/19 13:02 IMPRESSION: 1. No evidence of acute CVA. 2. Limiting motion. 3. Small vessel disease. EVIDENCE OF ACUTE STROKE: NO. Brain MRI with MRA 08/10/19 13:04 IMPRESSION: Limiting motion. No gross aneurysm or arterial occlusion of the [place]. Assessment & Plan - Diagnosis (1) Metabolic encephalopathy Is this a current diagnosis for this admission?: Yes (2) UTI (urinary tract infection) Qualifiers: Urinary tract infection type: site unspecified Hematuria presence: without hematuria Qualified Code(s): N39.0 - Urinary tract infection, site not specified Is this a current diagnosis for this admission?: Yes (3) Diabetes mellitus type 2 in obese Is this a current diagnosis for this admission?: Yes (4) Chronic atrial fibrillation Is this a current diagnosis for this admission?: Yes - Time Time Spent with patient: 15-24 minutes - Plan Summary Plan Summary: Patient will continue present line of management
--- NOTE | 2019-08-13 20:34 | PDOC DISCHARGE SUMMARY ---
Impression - Admit/DC Date/PCP Admission Date/Primary Care Provider: 08/11/19 14:30 CARLITOS FRIEND MD Discharge Date: 08/14/19 - Discharge Diagnosis (1) Metabolic encephalopathy Is this a current diagnosis for this admission?: Yes (2) UTI (urinary tract infection) Is this a current diagnosis for this admission?: Yes (3) Diabetes mellitus type 2 in obese Is this a current diagnosis for this admission?: Yes (4) Chronic atrial fibrillation Is this a current diagnosis for this admission?: Yes - Additional Information Referrals: CARLITOS FRIEND MD [Primary Care Provider] - Follow up as needed Prescriptions: Levofloxacin [Levaquin 750 mg Tablet] 750 mg PO DAILY #10 tablet Home Medications: Metformin HCl 1,000 mg PO QHS 02/16/12 Valacyclovir HCl [Valtrex 500 mg Tablet] 1,000 mg PO DAILY 02/16/12 Metoprolol Tartrate [Lopressor 50 mg Tablet] 50 mg PO Q12H 02/24/13 Rivaroxaban [Xarelto 10 mg Tablet] 20 mg PO QPM 02/24/13 Tolterodine Tartrate [Detrol 1 mg Tablet] 2 mg PO QAM 02/24/13 Pantoprazole Sodium [Protonix] 40 mg PO DAILY #14 tablet. 02/25/13 Acetaminophen with Codeine [Tylenol #3 Tablet] 2 tab PO Q4HP PRN 08/10/19 Allopurinol [Zyloprim 300 mg Tablet] 300 mg PO DAILY 08/10/19 Duloxetine HCl [Cymbalta] 60 mg PO DAILY 08/10/19 Empagliflozin [Jardiance] 25 mg PO DAILY 08/10/19 Losartan/Hydrochlorothiazide [Losartan-Hctz 100-25 mg Tab] 1 tab PO DAILY 11/23 Sitagliptin Phosphate [Januvia 50 mg Tablet] 100 mg PO DAILY 08/10/19 Zolpidem Tartrate [Zolpidem Tartrate ER] 6.25 mg PO HSP PRN 08/10/19 Levofloxacin [Levaquin 750 mg Tablet] 750 mg PO DAILY #10 tablet 08/13/19 History of Present Illiness History of Present Illness: ALAN HAYES is a 69 year old female patient who presented to the ED for f urther evaluation of her persistent dizziness and recurrent falls at home. she reported that she has been having loss of balance and not walking straight. She reported associated headache and generalized weakness. She denied any history of stroke, focal weakness or sustained any injury with her falls. She was evaluated on outpatient with carotid doppler that did not reveal any significant findings. Her initial ED evaluation was unrevealing regarding her head CT scan. Further evaluation revealed electrolyte derangement with prerenal azotemia, elevated CK and her urinalysis suggested possible UTI. She was advised hospitalization for further evaluation and management.. Hospital Course Hospital Course: Patient was admitted for the management of metabolic encephalopathy, UTI, she was treated with intravenous Levaquin. She was admitted over the weekend by Dr. Choi. I saw her today on the floor she is oriented to time place and person she has no new symptoms she is ready for discharge. Physical Exam Vital Signs: Temp Pulse Resp BP Pulse Ox 98.4 F 139 H 21 H 105/54 L 99 08/13/19 16:10 08/13/19 16:10 08/13/19 16:10 08/13/19 16:10 08/13/19 16:10 Intake & Output 08/12/19 08/13/19 08/14/19 06:59 06:59 06:59 Intake Total 4323 1700 Balance 4323 1700 Weight 95.5 kg General appearance: PRESENT: no acute distress, mild distress Eye exam: PRESENT: PERRLA Respiratory exam: PRESENT: clear to auscultation lior Cardiovascular exam: PRESENT: +S1, +S2 GI/Abdominal exam: PRESENT: soft Neurological exam: PRESENT: alert Results Laboratory Results: WBC 9.4 10^3/uL (4.0-10.5) 08/13/19 18:45 RBC 4.86 10^6/uL (3.72-5.28) 08/13/19 18:45 Hgb 15.3 g/dL (12.0-15.5) 08/13/19 18:45 Hct 43.4 % (36.0-47.0) 08/13/19 18:45 MCV 89 fl (80-97) 08/13/19 18:45 MCH 31.5 pg (27.0-33.4) 08/13/19 18:45 MCHC 35.3 g/dL (32.0-36.0) 08/13/19 18:45 RDW 15.3 % (11.5-14.0) H 08/13/19 18:45 Plt Count 222 10^3/uL (150-450) 08/13/19 18:45 Lymph % (Auto) 24.1 % (13-45) 08/13/19 18:45 [place] % (Auto) 6.6 % (3-13) 08/13/19 18:45 Eos % (Auto) 7.9 % (0-6) H 08/13/19 18:45 Baso % (Auto) 0.3 % (0-2) 08/13/19 18:45 Absolute Neuts (auto) 5.8 10^3/uL (1.7-8.2) 08/13/19 18:45 Absolute Lymphs (auto) 2.3 10^3/uL (0.5-4.7) 08/13/19 18:45 Absolute Monos (auto) 0.6 10^3/uL (0.1-1.4) 08/13/19 18:45 Absolute Eos (auto) 0.7 10^3/uL (0.0-0.6) H 08/13/19 18:45 Absolute Basos (auto) 0.0 10^3/uL (0.0-0.2) 08/13/19 18:45 Seg Neutrophils % 61.1 % (42-78) 08/13/19 18:45 PT 21.2 SEC (11.4-15.4) H 08/10/19 12:20 INR 1.81 08/10/19 12:20 APTT 38.7 SEC (23.5-35.8) H 08/10/19 12:20 Sodium 136.1 mmol/L (137-145) L 08/13/19 18:45 Potassium 4.0 mmol/L (3.6-5.0) 08/13/19 18:45 Chloride 107 mmol/L (98-107) 08/13/19 18:45 Carbon Dioxide 23 mmol/L (22-30) 08/13/19 18:45 Anion Gap 6 (5-19) 08/13/19 18:45 BUN 15 mg/dL (7-20) 08/13/19 18:45 Creatinine 0.83 mg/dL (0.52-1.25) 08/13/19 18:45 Est GFR ( Amer) > 60 (>60) 08/13/19 18:45 Est GFR (MDRD) Non-Af > 60 (>60) 08/13/19 18:45 Glucose 136 mg/dL (75-110) H 08/13/19 18:45 Lactic Acid 2.1 mmol/L (0.7-2.1) 08/11/19 01:53 Calcium 8.2 mg/dL (8.4-10.2) L 08/13/19 18:45 Magnesium 2.1 mg/dL (1.6-2.3) 08/11/19 04:43 Total Bilirubin 0.6 mg/dL (0.2-1.3) 08/11/19 04:43 Direct Bilirubin 0.4 mg/dL (0.0-0.4) 08/11/19 04:43 Neonat Total Bilirubin Not Reportable 08/11/19 04:43 Neonat Direct Bilirubin Not Reportable 08/11/19 04:43 Neonat Indirect Bili Not Reportable 08/11/19 04:43 AST 30 U/L (14-36) 08/11/19 04:43 ALT 51 U/L (<35) H 08/11/19 04:43 Alkaline Phosphatase 32 U/L (38-126) L 08/11/19 04:43 Creatine Kinase 316 U/L (30-135) H 08/10/19 12:20 Troponin I 0.038 ng/mL 08/10/19 16:10 Total Protein 5.5 g/dL (6.3-8.2) L 08/11/19 04:43 Albumin 2.9 g/dL (3.5-5.0) L 08/11/19 04:43 Urine Color YELLOW 08/10/19 14:20 Urine Appearance CLOUDY 08/10/19 14:20 Urine pH 6.0 (5.0-9.0) 08/10/19 14:20 Ur Specific [place] 1.021 08/10/19 14:20 Urine Protein 30 mg/dL (NEGATIVE) H 08/10/19 14:20 Urine Glucose (UA) >=500 mg/dL (NEGATIVE) H 08/10/19 14:20 Urine Ketones TRACE mg/dL (NEGATIVE) H 08/10/19 14:20 Urine Blood SMALL (NEGATIVE) H 08/10/19 14:20 Urine Nitrite NEGATIVE (NEGATIVE) 08/10/19 14:20 Urine Bilirubin NEGATIVE (NEGATIVE) 08/10/19 14:20 Urine Urobilinogen NEGATIVE mg/dL (<2.0) 08/10/19 14:20 Ur Leukocyte Esterase LARGE (NEGATIVE) H 08/10/19 14:20 Urine WBC (Auto) 69 /HPF 08/10/19 14:20 Urine RBC (Auto) 23 /HPF 08/10/19 14:20 Urine Bacteria (Auto) 1+ /HPF 08/10/19 14:20 Urine WBC Clumps FEW /HPF 08/10/19 14:20 Squamous Epi Cells Auto 7 /HPF 08/10/19 14:20 Urine Mucus (Auto) RARE /LPF 08/10/19 14:20 Urine Ascorbic Acid 40 (NEGATIVE) H 08/10/19 14:20 08/10/19 08/10/19 12:20 16:10 Troponin I 0.054 0.038 Impressions: Chest X-Ray 08/10/19 11:47 IMPRESSION: Increased size of the cardiomediastinal silhouette, possibly related to portable technique. No other evidence of acute intrathoracic process. Head CT 08/10/19 11:47 IMPRESSION: Motion degraded exam. 1. No evidence of acute intracranial hemorrhage or large vascular territory infarct within the limitations of the exam. 2. Unchanged probable small calcified meningioma along the posterior left midline. EVIDENCE OF ACUTE STROKE: NO. Head MRI 08/10/19 13:02 IMPRESSION: 1. No evidence of acute CVA. 2. Limiting motion. 3. Small vessel disease. EVIDENCE OF ACUTE STROKE: NO. Brain MRI with MRA 08/10/19 13:04 IMPRESSION: Limiting motion. No gross aneurysm or arterial occlusion of the [place]. Stroke Is this a Stroke Patient?: No Acute Heart Failure - Is this a Heart Failure Patient?: No
[2019-08-13] MEDS: RIVAROXABAN 10 MG TABLET PO SCH (20:36)
[2019-08-13] MEDS: METFORMIN HCL 500 MG TABLET PO SCH (21:42)
[2019-08-13] MEDS: ZOLPIDEM TARTRATE 5 MG TABLET PO PRN (21:42)
[2019-08-14] MEDS: METOPROLOL TARTRATE 50 MG TABLET PO SCH (02:18)
[2019-08-14] MEDS: NORMAL SALINE 1000 ML 1,000 ML IV PRN (02:20)
[2019-08-14] MEDS: TOLTERODINE TARTRATE 1 MG TABLET PO SCH (07:50)
[2019-08-14] MEDS: PANTOPRAZOLE SODIUM 40 MG TABLET.DR PO SCH (07:50)
[2019-08-14 08:00] VITALS: BP 114/79
== END 2019-08-14 08:52 | disposition home or self-care (01) | DRG 689 ==
LOC: ER 11:16 → INTOOBSV 17:34 → EH 17:34 → 4S 20:37 → OBSVTOIN 08-11 14:30
PROVIDERS: ADMIT Internal Medicine; ATTEND Internal Medicine
DX: N39.0 Urinary tract infection, site not specified (principal); G93.41 Metabolic encephalopathy; I48.20 Chronic atrial fibrillation, unspecified; E87.1 Hypo-osmolality and hyponatremia; E11.9 Type 2 diabetes mellitus without complications; E66.9 Obesity, unspecified; R29.6 Repeated falls; I10 Essential (primary) hypertension; G47.30 Sleep apnea, unspecified; K21.9 Gastro-esophageal reflux disease without esophagitis; E87.6 Hypokalemia; G47.00 Insomnia, unspecified; R47.81 Slurred speech; Z79.84 Long term (current) use of oral hypoglycemic drugs; Z79.899 Other long term (current) drug therapy; Z88.6 Allergy status to analgesic agent; Z88.1 Allergy status to other antibiotic agents; Z88.8 Allergy status to other drugs, medicaments and biological substances; Z91.048 Other nonmedicinal substance allergy status
CPT/HCPCS: 36415; 70450; 70544; 70551; 71045; 80048; 80053; 81001; 82550; 83605; 83735; 84484; 85025; 85610; 85730; 87040; 87086; 93005; 93010; 93880; 96361; 96365; 99285; G0378; J1956; J2405; J3490; J7030